=== PATIENT | female | born 1950 | race Caucasian/White ===

== ENCOUNTER → 2022-05-22 | Outpatient (CLI) | payer MEDICARE, OTHER | LOC: M WHC 08:37 | PROVIDERS: ATTEND Family Medicine | DX: M81.0 Age-related osteoporosis without current pathological fracture (principal); Z68.1 Body mass index [BMI] 19.9 or less, adult; M85.88 Other specified disorders of bone density and structure, other site; Z13.820 Encounter for screening for osteoporosis ==

== ENCOUNTER → 2023-05-01 | Outpatient (CLI) | payer MEDICARE, OTHER | LOC: M ONCR 14:14 | PROVIDERS: ATTEND General Practice | DX: C44.41 Basal cell carcinoma of skin of scalp and neck (principal); Z71.2 Person consulting for explanation of examination or test findings; Z80.0 Family history of malignant neoplasm of digestive organs; Z80.8 Family history of malignant neoplasm of other organs or systems; Z90.710 Acquired absence of both cervix and uterus ==

== ENCOUNTER → 2023-07-25 | Outpatient (REF) | payer MEDICARE, OTHER | LOC: M SFHCPLAZ 14:40 | PROVIDERS: ATTEND Nurse Practitioner Family | DX: Z51.89 Encounter for other specified aftercare (principal) ==

== ENCOUNTER → 2023-07-31 | Outpatient (REF) | payer MEDICARE, OTHER | LOC: M SFHCDERM 17:09 | PROVIDERS: ATTEND Dermatology | DX: Z51.89 Encounter for other specified aftercare (principal) ==

== ENCOUNTER → 2024-01-08 | Outpatient (REF) | payer MEDICARE, OTHER | LOC: M SFHCDERM 18:20 | PROVIDERS: ATTEND Physician Assistant | DX: D04.39 Carcinoma in situ of skin of other parts of face (principal) ==

== ENCOUNTER → 2024-07-16 | Outpatient (REF) | payer MEDICARE, OTHER | LOC: M SFHCADAM 13:31 | PROVIDERS: ATTEND Physician Assistant | DX: L98.9 Disorder of the skin and subcutaneous tissue, unspecified (principal); D04.4 Carcinoma in situ of skin of scalp and neck ==

== ENCOUNTER → 2025-03-23 | Outpatient (REF) | payer MEDICARE, OTHER | LOC: M SFHCDERM 17:47 | PROVIDERS: ATTEND Physician Assistant | DX: B07.9 Viral wart, unspecified (principal) ==